=== PATIENT | female | born 1935 | race Caucasian/White ===

== ENCOUNTER → 2017-07-14 | Outpatient (CLI) | payer MEDICARE, BC ==
--- NOTE | ~2017-07-14 | MY11 ---
[facility]. [facility] [place] [facility] TEXT RESULTS PATIENT: LENNIE ROSE IAIN LOCATION: [facility] : 35 UNIT #: [id number] AGE: [address]: Miles Lacey MD SEX: F ORDER DR: [id number] [address] [id number] O MR#: [id number] #: [id number] NAME: LENNIE ROSE IAIN : 1935 SEX: F STUDY DATE/TIME: 07/14/2017 14:07 UNIT: [facility] ROOM: STUDY DESCRIPTION: MY Mammogram Screening Dig Jermaine Attending Physician: Miles Lacey M.D. Referring Physician: Miles Lacey M.D. Ordering Physician: Miles Lacey M.D. Primary Care Physician: Miles Lacey M.D. MEDICAL IMAGING REPORT This report is preliminary unless electronic signature is present. EXAM Bilateral digital screening mammogram with CAD. COMPARISON July 08, 2016, June 19, 2015, June 03, 2014, May 24, 2013, May 18, 2012, May 20, 2011, May 14, 2010, May 05, 2009, April 28, 2008, April 10, 2007, March 05, 2006. INDICATIONS Breast cancer screening. 81-year-old asymptomatic female with no personal or family history of breast cancer. She reports prior benign left breast biopsy. FINDINGS Breast tissues are heterogeneously dense, which may obscure detection of small masses. No suspicious findings are seen in either breast. IMPRESSION No mammographic evidence of malignancy. Given the patient's breast density, one could consider annual screening breast tomosynthesis. Regardless, annual screening mammography is recommended for as long as the patient is in good health ([employer]), given the patient's age. Patients over the age of 40 are entered into a reminder system with target due date for the next mammogram. A result letter will also be sent to the patient. BIRADS: 2 Benign Finding [facility] A Service of [facility] RADIOLOGY TEXT RESULTS PATIENT: LENNIE ROSE IAIN LOCATION: [facility] : 35 UNIT #: [id number] AGE: [address]: Miles Lacey MD SEX: F ORDER DR: Dictated by... Trae Mendieta M.D. THIS IS AN ELECTRONICALLY VERIFIED REPORT Trae Mendieta M.D. at 07/17/2017 7:33 PM YECENIA/psc TD: 07/15/2017 01:37 JOB #: [id number] MEDICAL IMAGING REPORT Page 1 of 1
== END | disposition home or self-care (01) ==
LOC: SMAM 13:33
DX: Z12.31 Encounter for screening mammogram for malignant neoplasm of breast (principal); Z91.89 Other specified personal risk factors, not elsewhere classified
CPT/HCPCS: G0202